=== PATIENT | female | born 1955 | race Caucasian/White ===

== ENCOUNTER → 2018-04-28 | Outpatient (REF) | payer OTHER ==
[~2018-04-28] MED LIST: AMLODIPINE2.5 MG PO; AUGMENTIN875TAB PO; BL ADULT ASA81 MG OR; CALCIUM600 M1 OR; CHLORTHALID25 MG PO; CYANOCOBALAM1000 MCG IJ; DEPO-MEDROL80 MG/ML IM; DIFLUCAN150 MG PO; DIOVAN160 MG OR; DIOVAN160 MG PO; ELIMITE EX; ESTRACE VAG0.1 MG/GM VA; FLEXERIL5 MG PO; HYDROCHLOROT25 MG PO; HYDROCHLOROT50 MG PO; HYDROXYZ HCL25 MG PO; KEFLEX500 MG PO; MELOXICAM15 MG PO; MULTIVITAM10 OR; NABUMETONE750 MG PO; PNEUMOVAX 23 IM; POLYTRIM OU; TENORMIN25 MG PO; VITAMIN B-121000 MC1 SL; ZYRTEC10 M2 OR; [UNRECOGNIZED DRUG - OTHER] XX
[2018-04-28 10:54] LABS: HEMATOCRIT 36.8 % (37.0-47.0); HEMOGLOBIN 12.4 g/dl (12.0-16.0); IMMATURE GRANULOCYTES 0.2 % (0.0-5.0); MEAN CELL VOLUME 97.1 fL CALC (80.0-100.0); MEAN CORPUSCULAR HGB 32.7 pG CALC (26.0-32.0); MEAN CORPUSCULAR HGB CONC 33.7 g/L CALC (32.0-36.0); NEUT# 2.54 thou/uL (2.00-7.15); RED BLOOD COUNT 3.79 mill/uL (4.20-5.60); RED CELL DISTRI WIDTH 12.6 % (11.5-15.5)
[2018-04-28 11:17] LABS: ALBUMIN 4.4 g/dL (3.2-5.0); ALKALINE PHOSPHATASE 71 u/l (38-126); ANION GAP 13 (6-22 (CALC)); BILIRUBIN, TOTAL 1.2 mg/dL (0.0-1.4); BUN 16 mg/dL (8-23); BUN/CREATININE RATIO 20 (12-20 (CALC)); CARBON DIOXIDE 27 mmol/l (22-30); CHLORIDE 101 mmol/l (95-108); CREATININE 0.8 mg/dL (0.5-1.0); GFR > 60 ML/MIN (>=60 (CALC)); GFR FOR AFR.AMER. > 60 ML/MIN (>=60 (CALC)); POTASSIUM 4.2 mmol/l (3.5-5.1); SGOT/AST 32 u/l (9-36); SODIUM 137 mmol/l (137-146); TOTAL PROTEIN 7.1 g/dL (6.3-8.2)
[2018-04-28 11:46] LABS: TSH, 3RD GENERATION 2.39 uIU/mL (0.47 - 4.68)
== END | disposition home or self-care (01) | DRG 645 ==
LOC: LAB 09:50
PROVIDERS: ATTEND Family Medicine
DX: E34.9 Endocrine disorder, unspecified (principal); N95.1 Menopausal and female climacteric states; N95.8 Other specified menopausal and perimenopausal disorders; R53.83 Other fatigue; E55.9 Vitamin D deficiency, unspecified; E78.5 Hyperlipidemia, unspecified; R73.01 Impaired fasting glucose; E03.9 Hypothyroidism, unspecified

== ENCOUNTER → 2018-04-28 | Outpatient (REF) ==
[2018-04-28 11:18] LABS: CHOLESTEROL HDL RATIO 3.2 (<4.4 (CALC))
== END | disposition home or self-care (01) | DRG 951 ==
LOC: LAB 09:44
PROVIDERS: ATTEND Family Medicine
DX: Z02.6 Encounter for examination for insurance purposes (principal)

== ENCOUNTER → 2018-05-01 | Outpatient (REF) | payer OTHER | END | disposition home or self-care (01) | DRG 951 | LOC: MAMMO 11:00 | PROVIDERS: ATTEND Family Medicine | DX: Z12.31 Encounter for screening mammogram for malignant neoplasm of breast (principal) ==

== ENCOUNTER → 2019-05-02 | Day surgery (SDC) | payer OTHER ==
[~2019-05-02] MED LIST changes: +ADDERALL10 MG PO; +LOSARTAN POTASS50 MG PO; +OMEPRAZOLE20 M2 PO; +SG ASA LOW81 M1 PO; +ZYRTEC10 MG PO
== END | disposition home or self-care (01) | DRG 951 ==
PROC: 0DJD8ZZ Inspection of Lower Intestinal Tract, Via Natural or Artificial Opening Endoscopic (ICD-10-PCS; principal; 2019-05-02)
DX: Z12.11 Encounter for screening for malignant neoplasm of colon (principal); Z86.010 Personal history of colon polyps; Z80.0 Family history of malignant neoplasm of digestive organs